=== PATIENT | female | born 1990 | race Two or more races ===

== ENCOUNTER 2024-01-19 11:46 | Emergency (ER) | payer OTHER ==
[~2024-01-19] VITALS: Ht 167.6 cm; Wt 80.2 kg
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
[2024-01-19 12:42] VITALS: PULSE 92; RESP 16; O2SAT 98
[2024-01-19] MEDS: IBUPROFEN 600 MG TAB PO ONE (12:42)
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
[2024-01-19] MEDS ORDERED: CEPH250C PO (12:58)
[2024-01-19 13:07] VITALS: BP 107/68; PULSE 96; RESP 17; O2SAT 100
== END 2024-01-19 13:10 | disposition home or self-care (01) ==
LOC: ER 11:46
DX: S39.012A Strain of muscle, fascia and tendon of lower back, initial encounter (principal); L03.114 Cellulitis of left upper limb; F12.10 Cannabis abuse, uncomplicated; Z98.890 Other specified postprocedural states; V89.2XXA Person injured in unspecified motor-vehicle accident, traffic, initial encounter; Y92.410 Unspecified street and highway as the place of occurrence of the external cause; Y93.89 Activity, other specified; Y92.488 Other paved roadways as the place of occurrence of the external cause; Y99.8 Other external cause status
CPT/HCPCS: 72100; 73090